=== PATIENT | female | born 1965 | race Caucasian/White ===

== ENCOUNTER → 2022-04-15 10:10 | Outpatient (CLI) | payer BC, SELFPAY ==
--- NOTE | ~2022-04-15 | MR_ITS ---
EXAMINATION: MR knee RT wo con DATE: 04/15/2022 10:48 INDICATION: Right knee pain. TECHNIQUE: Magnetic resonance imaging (MRI) of the right knee was performed without intravenous contr ast. COMPARISON: None. FINDINGS: Medial compartment: Medial meniscus is normal. There is shallow partial-thickness cartilage loss of tibial condyle. There is partial-thickness cartilage loss of femoral condyle, deep at the central articular surface. In th e central articular surface of the femoral condyle. There is a 2 x 4 mm area of cartilage undermining . Osteophytes are noted. Lateral compartment: Lateral meniscus is normal. Lateral compartment cartilage is normal. Osteophytes are noted. Patellofemoral compartment: There is cartilage fissuring of patellar lateral facet. There is partial-thickness cartilage loss of trochlea, deep at the central trochlea. Osteophytes are noted. Ligaments and tendons: There is an intact anterior cruciate ligament reconstruction. Posterior cruciate ligament is normal. Medial collateral ligament and lateral collateral ligament complex are intact. There is a graft donor site in patellar tendon. Fluid: There is a small knee joint effusion. There is trace fluid in a Hardin's cyst. There is mild superfici al infrapatellar bursitis. IMPRESSION: 1. Moderate chondrosis of medial and patellofemoral compartments. 2. Intact anterior cruciate ligament reconstruction. 3. Small knee joint effusion. Reviewed, dictated and finalized at location A. GY ADVISOR
== END ==
PROVIDERS: PCP Internal Medicine; Visit Provider Orthopaedic Surgery
DX: M25.561 Pain in right knee (principal); M22.2X1 Patellofemoral disorders, right knee; Z98.890 Other specified postprocedural states; M25.461 Effusion, right knee
CPT/HCPCS: 73721

== ENCOUNTER 2024-06-06 12:42 | Outpatient (CLI) | payer BC, SELFPAY ==
--- NOTE | ~2024-06-06 | MR_ITS ---
MRI of the cervical spine Clinical History: Radiculopathy Technique: Axial T2-weighted images, and sagittal T1-weighted, T2-weighted, and STIR images were acqu ired. Findings: There is no acute fracture or subluxation of the cervical spine. Vertebral bodies maintain normal height and alignment. No suspicious bone marrow signal abnormality seen. At C2-C3, there is minimal disc bulge. No spinal canal stenosis, cord compression, or neural foramina l narrowing. There is mild left facet arthropathy. At C3-C4, there is minimal disc bulge. There is bilateral facet arthropathy, left worse than right wi th probable mild bilateral neural foraminal narrowing. No canal stenosis or cord compression. At C4-C5, there is mild degenerative disc narrowing with disc osteophyte complex. There is mild canal stenosis without linsey cord compression. There is left facet arthropathy. No definite neural foramin al narrowing. At C5-C6, there is moderate to advanced degenerative disc narrowing with disc ossify compost. There i s mild canal stenosis without linsey cord compression. There is probable mild right neural foraminal n arrowing. Left neural foramen preserved. At C6-C7, there is moderate degenerative disc narrowing with mild disc osteophyte complex. No linsey c anal stenosis or cord compression. No definite neural foraminal narrowing. No abnormal signal seen in the spinal cord. Paravertebral soft tissues are unremarkable. Impression: Moderate degenerative spondylosis, as detailed above. Reviewed, dictated and finalized at [facility]. 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
--- NOTE | ~2024-06-06 | MR_ITS ---
MRI of the lumbar spine Clinical History: Degenerative disc disease Technique: Axial T2-weighted images, and sagittal T1-weighted, T2-weighted, and T2 fat-sat images wer e acquired. Findings: There is no fracture or subluxation of the lumbar spine. Vertebral bodies maintain normal h eight and alignment. No suspicious bone marrow signal abnormality seen. At L1-L2, there is no disc bulge or herniation. There is moderate facet arthropathy. No central canal stenosis or neural foraminal narrowing. At L2-L3, there is minimal disc bulge with advanced facet arthropathy. No central canal stenosis or n eural foraminal narrowing. At L3-L4, there is diffuse disc bulge with probable left paracentral protrusion and moderate to advan lloyd facet arthropathy. No central canal stenosis. Neural foramina are relatively well-preserved. At L4-L5, there is central disc protrusion with moderate to advanced facet arthropathy. No central ca nal stenosis or neural foraminal narrowing. At L5-S1, there is mild disc bulge with moderate facet arthropathy. No central canal stenosis. There is moderate to advanced left neural foraminal narrowing. Right neural foramen preserved. Paravertebral soft tissues are unremarkable. Impression: Overall mild to possibly mild/moderate degenerative spondylosis, as above. Reviewed, dictated and finalized at location . PAINTER Impression: Overall mild to possibly mild/moderate degenerative spondylosis, as above.
== END 2024-06-06 12:43 | disposition home or self-care (01) ==
PROVIDERS: PCP Internal Medicine; Visit Provider Nurse Practitioner Family
DX: M51.360 Other intervertebral disc degeneration, lumbar region with discogenic back pain only (principal); M47.892 Other spondylosis, cervical region; M47.896 Other spondylosis, lumbar region
CPT/HCPCS: 72141; 72148